=== PATIENT | female | born 1975 | race Two or more races ===

== ENCOUNTER 2018-04-05 12:43 | Emergency (ER) | payer SELFPAY ==
[~2018-04-05] VITALS: Ht 157.5 cm; Wt 68.0 kg
[2018-04-05 13:31] LABS: BASOPHILS # (AUTO) 0.04 x10^3/uL (0-0.1); BASOPHILS % (AUTO) 1 % (0-1); EOSINOPHILS # (AUTO) 0.12 x10^3/uL (0-0.4); EOSINOPHILS % (AUTO) 1 % (1-7); LYMPHOCYTES # (AUTO) 2.12 x10^3/uL (1-3.4); LYMPHOCYTES % (AUTO) 25 % (22-44); MD NO; MEAN CORPUSCULAR HEMOGLOBIN 22.8 pg (27.0-34.8); MEAN CORPUSCULAR HGB CONC 31.9 g/dL (32.4-35.8); MEAN CORPUSCULAR VOLUME 71.6 fL (80-100); MEAN PLATELET VOLUME 9.2 fL (7.4-10.4); MONOCYTES # (AUTO) 0.51 x10^3/uL (0.2-0.8); MONOCYTES % (AUTO) 6 % (2-9); NEUTROPHILS # (AUTO) 5.68 x10^3/uL (1.8-6.8); NEUTROPHILS % (AUTO) 67 % (42-75); PLATELET COUNT 310 x10^3/uL (130-400); RED CELL DISTRIBUTION WIDTH 17.1 % (9.6-15.2)
[2018-04-05 13:39] LABS: ALBUMIN 3.7 g/dL (3.4-5.0); ANION GAP 6 mmol/L (5-15); CALCIUM 8.3 mg/dL (8.5-10.1); CHLORIDE 108 mmol/L (98-107); CREATININE 0.75 mg/dL (0.55-1.02)
[2018-04-05 13:42] LABS: TROPONIN I < 0.015 ng/mL (0.000-0.045)
--- NOTE | 2018-04-05 14:13 | NUR ---
TO ROOM 24. ORIENTED TO ROOM WITH FAMILY
--- NOTE | 2018-04-05 14:41 | NUR ---
URINE CUP GIVEN TO PT
--- NOTE | 2018-04-05 14:54 | NUR ---
SBAR report received from RN, Edgard.
[2018-04-05 15:12] LABS: MICROSCOPIC NOT IND
[2018-04-05 15:18] LABS: CULTURE INDICATED? NO
--- NOTE | 2018-04-05 15:48 | NUR ---
Pt to imaging, with tech, via [facility].
--- NOTE | 2018-04-05 16:04 | NUR ---
Pt back to room from imaging.
[2018-04-05] MEDS ORDERED: OMNIPAQUE 350 MG/ML, 100ML BOTTLE ONE (16:06)
[2018-04-05 16:59] VITALS: BP 107/53
--- NOTE | 2018-04-05 17:01 | NUR ---
Patient/Caregiver given discharge instructions and they have confirmed that they understand the instructions. Patient ambulatory with steady gait.
== END 2018-04-05 17:02 | disposition home or self-care (01) ==
LOC: ED 15:41
DX: N83.291 Other ovarian cyst, right side (principal); D64.9 Anemia, unspecified; Z98.890 Other specified postprocedural states
CPT/HCPCS: 36415; 71045; 74177; 80048; 81003; 82040; 84484; 84703; 85025; 93005; 99284; Q9967